=== PATIENT | female | born 1970 | race Caucasian/White ===

== ENCOUNTER → 2016-11-05 | Outpatient (CLI) | payer BC, OTHER ==
[~2016-11-05] VITALS: Ht 162.6 cm; Wt 115.0 kg
[~2016-11-05] MED LIST: BUPR150T7 PO; LACTATED RINGER'S 1000ML 1,000 ML IV SCH; LEVO25TA5 PO; LISI-461 PO; LRT5 PO; ONDA4TAB10 SL; OXYC-57 PO; OXYC1TAB3 PO; RBTDMUDC5 PO
--- NOTE | 2016-11-05 09:27 | PAT Medication Instructions ---
Service Date Nov 05, 2016. Current Home Medication List Bupropion Hcl (Wellbutrin Sr), 150 MG PO HS Guaifenesin/Dextromethorphan (Guaifenesin-Dm 100-10 mg/5Ml), 5 ML PO HS Hydrocodone/Acetaminophen 5MG/500MG (Vicodin 5MG/500MG), 1-2 TABS PO Q4-6HR PRN Levothyroxine Sodium (Levothyroxine Sodium), 1 TAB PO QAM Lisinopril (Lisinopril), 1 TAB PO HS Medication Instructions For Your Scheduled Surgery - Take the following medications the morning of surgery with a sip of water: Levothyroxine Sodium (Levothyroxine Sodium), 1 TAB PO QAM - Hold the following medications as scheduled the night before surgery: Lisinopril (Lisinopril), 1 TAB PO HS - Take the following medications as scheduled the night before surgery: Guaifenesin/Dextromethorphan (Guaifenesin-Dm 100-10 mg/5Ml), 5 ML PO HS Bupropion Hcl (Wellbutrin Sr), 150 MG PO HS If you have any questions please call us at [phone] (Safia Minor PA-C) or [phone] or [phone]
[2016-11-05 09:30] VITALS: Ht 162.6 cm; Wt 115.0 kg
[2016-11-05 10:16] LABS: BASO % 0.8 %; BASO ABS # 0.04 K/uL (0-0.2); COMPLETE YES; EOS % 3.7 %; HEMATOCRIT 36.2 % (37-47); IG% 0.2 %; LYMPH % 33.7 %; LYMPH ABS # 1.75 K/uL (1.2-3.4); MEAN CELL VOLUME 80.6 fL (80-100); MEAN CORPUSCULAR HEMOGLOBIN 25.6 pg (25-34); MEAN CORPUSCULAR HGB CONC 31.8 g/dl (32-36); MEAN PLATELET VOLUME 11.1 fL (7.4-10.4); NEUT % 51.6 %; PLATELET COUNT 354 K/uL (130-400); RED BLOOD COUNT 4.49 M/uL (4.2-5.4)
== END | disposition home or self-care (01) ==
LOC: C.LAB 08:00 → EDSTATUS 11-12 07:00
PROVIDERS: ATTEND Otolaryngology
DX: Z01.812 Encounter for preprocedural laboratory examination (principal); Z01.810 Encounter for preprocedural cardiovascular examination

== ENCOUNTER 2016-12-28 16:35 | Emergency (ER) | payer BC ==
[~2016-12-28] VITALS: Ht 162.6 cm; Wt 111.8 kg
[~2016-12-28 16:35] MED LIST changes: -LACTATED RINGER'S 1000ML 1,000 ML IV SCH; -ONDA4TAB10 SL; -OXYC-57 PO; -OXYC1TAB3 PO
--- NOTE | 2016-12-28 16:43 | History and Physical ---
History & Physical Date & Time of Service: December 28, 2016 at 16:40 Chief Complaint: Bleeding For Tonsillectomy Primary Care Physician: Adryan Biggs M.D. History of Present Illness Source: patient Patient s/p tonsillectomy 1 week ago. Had tonsil bleed last night, went to [facility] who evaluated patient and discharged home as she was not having active bleeding at that time. 930 am had another episode of bleeding, then had another at 2pm. I instructed to come to office. At office had some vomiting with old blood noted. Large clot left fossa. Recommended hospital for trip back to OR for control of bleed. Social History Smoking Status: Former Smoker Allergies Coded Allergies: No Known Allergies (Verified , `, 12/02/08) Home Medications Scheduled Bupropion Hcl (Wellbutrin Sr), 150 MG PO HS Guaifenesin/Dextromethorphan (Guaifenesin-Dm 100-10 mg/5Ml), 5 ML PO HS Hydrocodone/Acetaminophen 5MG/500MG (Vicodin 5MG/500MG), 1-2 TABS PO Q4-6HR PRN Levothyroxine Sodium (Levothyroxine Sodium), 1 TAB PO QAM Lisinopril (Lisinopril), 1 TAB PO HS Review of Systems Constitutional: No chills, No fatigue, No fever, No problem reported, No sweats , No weakness, No weight loss Eyes: No diplopia, No discharge, No eye pain, No problem reported, No redness, No worsening of vision ENT: + problem reported (see HPI) Respiratory: No cough, No dyspnea at rest, No dyspnea on exertion, No hemoptysis, No problem reported, No shortness of breath, No sputum, No wheezing Cardiovascular: No PND, No chest pain, No claudication, No edema, No orthopnea , No palpitations, No problem reported Abdomen: No GI bleeding, No constipation, No diarrhea, No nausea, No pain, No problem reported, No vomiting Neurologic: No balance problems, No memory loss, No numbness/tingling, No paralysis, No problem reported, No vertigo, No weakness Physical Exam General Appearance: WD/WN, no apparent distress Head: normocephalic, atraumatic ENT: + pertinent finding (Left tonsillar fossa clot. right fossa clear, no clot. ) Respiratory/Chest: lungs clear, normal breath sounds Cardiovascular: regular rate, rhythm, no edema Impression Assessment and Plan 45 yo female s/p tonsillectomy one week ago with post tonsillectomy bleed. - to OR for control of bleed - Hgb/Hct
[2016-12-28] MEDS ORDERED: FENTANYL CITRATE INJ 50 MCG/1 ML 2 ML VIAL ONE ×2 (16:46→18:06)
[2016-12-28] MEDS ORDERED: ONDANSETRON INJ 2 MG/ML 2 ML VIAL ONE ×2 (16:46→18:15)
[2016-12-28] MEDS ORDERED: SUCCINYLCHOLINE CHLORIDE 20 MG/ML 10 ML VIAL IV ONE (16:46)
[2016-12-28] MEDS ORDERED: PROPOFOL IV EMULSION 10 MG/ML 20 ML VIAL IV ONE (16:46)
[2016-12-28] MEDS ORDERED: LIDOCAINE HCL 2% 2 ML VIAL (20MG/ML) ONE (16:46)
[2016-12-28] MEDS ORDERED: DEXAMETHASONE SOD INJ 4 MG/ML VIAL ONE (16:46)
[2016-12-28 16:57] VITALS: O2SAT 99; Ht 162.6 cm; Wt 111.8 kg
[2016-12-28] MEDS ORDERED: BUPIVACAINE/EPINEPHRINE 0.5% MPF 1:200,000 30 ML VIAL ONE (17:02)
[2016-12-28 17:05] LABS: HEMATOCRIT 35.2 % (37-47)
[2016-12-28] MEDS ORDERED: ROCURONIUM BROMIDE 10 MG/ML 5 ML VIAL ONE (17:28)
[2016-12-28] MEDS ORDERED: NEOSTIGMINE METHYLSULFATE 5 MG/5 ML SYR ONE (17:28)
[2016-12-28] MEDS ORDERED: GLYCOPYRROLATE INJ 0.2 MG/ML VIAL ONE (17:28)
[2016-12-28] MEDS ORDERED: FLOSEAL HEMOSTATIC MATRIX 5ML TOP ONE (17:52)
[2016-12-28] MEDS ORDERED: SODIUM CHLORIDE 0.9% 1000ML 1,000 ML IV SCH (18:05)
--- NOTE | 2016-12-28 18:05 | [facility] Post Operative Brief Note ---
Immediate Operative Summary Operative Date December 28, 2016. Pre-Operative Diagnosis Post Tonsillar Bleed Post-Operative Diagnosis Post Tonsillar Bleed Procedure(s) Performed Post Tonsular Bleed Repair Surgeon Dr. Xiong Supportability Engineer Surgeon(s) none Estimated Blood Loss 5ml Findings left inferior pole bleeding vessel Specimens None Drains none Anesthesia GETA Complication(s) None Disposition Recovery Room / PACU
[2016-12-28] MEDS ORDERED: OXYC1TAB3 PO (18:08)
[2016-12-28] MEDS ORDERED: ONDA4TAB10 SL (18:08)
--- NOTE | 2016-12-28 18:11 | Discharge Instructions ---
Discharge Instructions Date of Service December 28, 2016. Admission Reason for Admission: Bleeding For Tonsillectomy Discharge Discharge Diagnosis / Problem: Post tonsillectomy bleed Discharge Goals Goal(s): Improve function Activity Recommendations Activity Limitations: as noted below Lifting Limitations: no more than 5 pounds No strenuous activity for 2 weeks No NSAIDs for 2 weeks . Instructions / Follow-Up Instructions / Follow-Up No strenuous activity for 2 weeks No NSAIDs for 2 weeks Call for any bleeding from the throat ([phone]) Current Hospital Diet Patient's current hospital diet: Discharge Diet Recommended Diet: Regular Diet Procedures Procedures Performed: Post Tonsular Bleed Repair Pending Studies Studies pending at discharge: no Medical Emergencies . Who to Call and When: Medical Emergencies: If at any time you feel your situation is an emergency, please call 911 immediately. . Non-Emergent Contact Non-Emergency issues call your: Hospital Doctor, Specialist Contact Number: [phone] . . "Provider Documentation" section prepared by Landon Xiong. . VTE Core Measure Inpt VTE Proph given/why not?: Treatment not indicated [place] Drug Monitoring Program Search Results: patient reviewed within database, no issues identified
[2016-12-28] MEDS ORDERED: MoRPHine SULFATE 2 MG/ML CARP IV PRN (18:15)
[2016-12-28] MEDS ORDERED: FENTANYL CITRATE INJ 50 MCG/1 ML 2 ML VIAL IV PRN (18:15)
[2016-12-28] MEDS ORDERED: ONDANSETRON INJ 2 MG/ML 2 ML VIAL IV PRN ×2 (18:15)
[2016-12-28] MEDS ORDERED: OXYCODONE/ACETAMINOPHEN 5-325 TAB PO PRN ×2 (18:15)
[2016-12-28] MEDS ORDERED: EpHEDrine SULFATE INJ 50 MG/ML AMP IV PRN (18:15)
[2016-12-28] MEDS ORDERED: HYDROmorphone INJ 1 MG/ML SYR IV PRN (18:15)
[2016-12-28] MEDS ORDERED: ATROPINE SULFATE 0.1 MG/ML 5ML SYR IV PRN (18:15)
[2016-12-28] MEDS ORDERED: OXYC-57 PO (18:16)
[2016-12-28] MEDS ORDERED: HYDROmorphone INJ 1 MG/ML SYR ONE (18:28)
--- NOTE | 2016-12-28 18:44 | Anesthesiology Progress Note ---
Anesthesia Post Op Note Date & Time December 28, 2016 at 18:45 Vital Signs Pain Intensity: 10 Vital Signs Past 12 Hours Date Time Temp Pulse Resp B/P Pulse Ox O2 Delivery O2 Flow Rate FiO2 12/28/16 18:23 83 13 12/28/16 18:23 83 13 98 12/28/16 18:21 134/76 12/28/16 18:18 90 16 12/28/16 18:18 87 16 99 12/28/16 18:16 138/79 12/28/16 18:13 82 24 12/28/16 18:13 82 24 99 12/28/16 18:11 136/77 12/28/16 18:08 81 20 99 12/28/16 18:08 81 20 12/28/16 18:06 133/83 12/28/16 18:04 146/62 12/28/16 18:03 36.4 82 22 146/62 94 Nasal Cannula 2 12/28/16 18:03 87 93 12/28/16 18:03 86 12/28/16 16:57 36.6 130 20 110/76 99 Room Air Notes Mental Status: alert / awake / arousable, participated in evaluation Pt Amnestic to Procedure: Yes Nausea / Vomiting: adequately controlled Pain: improving with treatment Airway Patency, RR, SpO2: stable & adequate BP & HR: stable & adequate Hydration State: stable & adequate Anesthetic Complications: no major complications apparent
[2016-12-28 18:45] VITALS: TEMP 36.8
[2016-12-28 18:50] VITALS: PULSE 88; O2SAT 100
[2016-12-28 18:51] VITALS: BP 128/77
--- NOTE | 2016-12-28 23:37 | OPERATIVE REPORT ---
DATE OF OPERATION: 12/28/2016 PREOPERATIVE DIAGNOSIS: Post-tonsillectomy hemorrhage. POSTOPERATIVE DIAGNOSIS: Same. PROCEDURE PERFORMED: Control of post-tonsillectomy bleed. SURGEON: Dr. Landon Xiong. ASSISTANTS: None. ANESTHESIA: General endotracheal anesthesia. ESTIMATED BLOOD LOSS: 10 mL. IV FLUIDS: 800 mL. URINE OUTPUT: 0 mL. SPECIMENS: None. COMPLICATIONS: None. DRAINS: None. INDICATIONS AND HISTORY: This is a 45-year-old female who underwent adenotonsillectomy 1 week ago who last night around midnight did have a brief episode of a tonsil bleed which she [facility] to [facility]. According to the patient [facility], looked in her mouth, noted no active bleeding and discharged her home. She had another bleed this morning around 9:00 a.m. followed by another one at around 2:00 p.m. At that point, she finally called my office. I instructed her to come to the office for evaluation. Upon evaluation in the office, a large clot was noted on the left fossa and she did vomit some old blood. Due to the large clot and her body habitus, I recommended undergoing a control of post-tonsillectomy bleed in the operating room. She expressed her understanding. I discussed the risks with her including bleeding, infection and ; she expressed understanding and signed informed consent. DESCRIPTION OF THE OPERATION: The patient was brought to the operating room, identified, procedure verified. She underwent general endotracheal anesthesia and was prepped and draped in usual fashion for control of post-tonsillectomy bleed. A McIvor mouth gag was placed and evaluation of the tonsillar fossa was performed. The right fossa had a small amount of clot which was suctioned away. No active bleeding or bleeding sites were identified. At this point, attention was directed to the left fossa where a very large clot filling the entire fossa was suctioned away. Superior pole was clear, midpole was clear and upon suctioning of the inferior pole, a pumping arterial blood vessel was identified as the likely source of her bleeding. This was cauterized with suction Bovie on a setting of 25 coagulation. This was successful in controlling the bleeding. At this point, mouth gag was released and the patient was allowed to relax for several minutes. The mouth gag was then reopened and evaluation revealed no further bleeding. Once hemostasis was achieved, an OG tube was placed with several passes and old blood was suctioned from the stomach. Once this was performed, attention was directed back to the tonsillar fossa, which was still dry. FloSeal was placed into each tonsillar fossa. The oropharynx was suctioned. The patient was returned to anesthesia. She was awakened, extubated and taken to PACU in stable condition. Of note her Hgb was 11 at time of draw in the ED. I attest to the content of the Intraoperative Record and any orders documented therein. Any exceptions are noted below. CIERAD
== END 2016-12-28 19:55 | disposition home or self-care (01) ==
LOC: EDBD 16:35 → C.EDC 16:36
DX: J95.830 Postprocedural hemorrhage of a respiratory system organ or structure following a respiratory system procedure (principal); Z87.891 Personal history of nicotine dependence; K92.0 Hematemesis